=== PATIENT | male | born 1935 | race Caucasian/White ===

== ENCOUNTER 2017-10-15 07:41 | Emergency (ER) | payer OTHER, MEDICARE ==
[~2017-10-15] VITALS: Ht 182.9 cm; Wt 80.0 kg
[~2017-10-15 07:41] MED LIST: GLUCTAB PO; LEVO.025 PO; METR0.7533 TOP; NORV2.5T11 PO; PRED20 PO; TAB-TAB PO
[2017-10-15 07:44] VITALS: BP 157/75; PULSE 62; RESP 16; TEMP 97.7; O2SAT 96
[2017-10-15] MEDS ORDERED: MORPHINE SULFATE 4 MG/ML INJ IV ONE (08:00)
[2017-10-15] MEDS ORDERED: SODIUM CHLORIDE 0.9% FLUSH 10 ML FLUSH IVF PRN (08:00)
[2017-10-15] MEDS ORDERED: ONDANSETRON HCL 4 MG/2 ML VIAL IVP ONE (08:00)
[2017-10-15] MEDS ORDERED: LEVO125T4 PO (08:03)
[2017-10-15] MEDS ORDERED: FISHCAP4 PO (08:03)
[2017-10-15] MEDS ORDERED: AMLO5TAB2 PO (08:03)
[2017-10-15] MEDS ORDERED: METF500T PO (08:03)
--- NOTE | 2017-10-15 08:07 | PD ---
HPI . Back pain Chief Complaint: Flank/Kidney Pain Time Seen by Provider: 07:59 Travel History International Travel<30 days: No Contact w/Intl Traveler<30days: No Traveled to known affect area: No History of Present Illness HPI Patient presents with a chief complaint of low back pain. Onset was 2 days ago. He states that the pain was initially relieved by Tylenol. However, his pain became much worse during the night last night and is now unrelieved by Tylenol. He describes the pain as "mechanical" and states that it is exacerbated by certain movements and by walking. He rates the pain 10/10. The pain is bilateral but is worse on the right side. He has had previous kidney stones but states that this pain is dissimilar to previous kidney colic pain. PFSH Past Medical History Cardiovascular Problems: Yes (htn on meds) Diabetes: Yes (type 2) Patient Takes Glucophage: Yes Diminished Hearing: No Hypertension: Yes Kidney Stones: Yes (LAST KIDNEY STONE 11/07/2002) Immunizations Current: Yes Thyroid Disease: Yes Tetanus Vaccination: Unknown Social History Alcohol Use: No Tobacco Use: No Substance Use: No Allergies-Medications (Allergen,Severity, Reaction): Coded Allergies: No Known Allergies (Unverified Adverse Reaction, Unknown, 10/15/17) Reported Meds & Prescriptions Reported Meds & Active Scripts Active Reported Fish Oil + D3 (Fish Oil-Cholecalciferol) 1,200-1,000 Mg-Unit Cap 1 Cap PO DAILY Metformin (Metformin HCl) 500 Mg Tab 500 Mg PO TIDPC Amlodipine (Amlodipine Besylate) 5 Mg Tab 5 Mg PO DAILY Levothyroxine (Levothyroxine Sodium) 125 Mcg Tab 125 Mcg PO DAILY Review of Systems Except as stated in HPI: all other systems reviewed are Neg General / Constitutional: No: Fever, Chills Gastrointestinal: Positive: Nausea, No: Vomiting Genitourinary: Positive: Frequency (he states that he had to get up to urinate 3 or 4 times during the night which is unusual for him), Flank Pain, No: Dysuria , Hematuria Physical Exam Narrative GENERAL: Patient was standing up in the room in no acute distress. SKIN: warm/dry. Normal color and turgor. HEAD: Normocephalic. Atraumatic. EYES: Pupils equal and round. No scleral icterus. No injection or drainage. ENT: No nasal bleeding or discharge. Mucous membranes pink and moist. NECK: Trachea midline. Full range of motion without pain.. CARDIOVASCULAR: Regular rate and rhythm. RESPIRATORY: No accessory muscle use. Clear to auscultation. Breath sounds equal bilaterally. GASTROINTESTINAL: Abdomen soft. Nontender. Bowel sounds present. Nondistended. Positive right CVA tenderness. MUSCULOSKELETAL: No obvious deformities. NEUROLOGICAL: Awake and alert. No obvious cranial nerve deficits. Motor grossly within normal limits. Normal speech. PSYCHIATRIC: Appropriate mood and affect; insight and judgment normal. Data Data Last Documented VS Vital Signs Date Time Temp Pulse Resp B/P (MAP) Pulse Ox O2 Delivery O2 Flow Rate FiO2 10/15/17 07:44 97.7 62 16 157/75 (102) 96 Orders Orders Urinalysis - C+S If Indicated (10/15/17 07:42) Basic Metabolic Panel (Bmp) (10/15/17 07:59) Complete Blood Count With Diff (10/15/17 07:59) Ct Abd/Pel W/O Iv Contrast (10/15/17 07:59) Iv Access Insert/Monitor (10/15/17 07:59) Ondansetron Inj (Zofran Inj) (10/15/17 08:00) Sodium Chloride 0.9% Flush (Ns Flush) (10/15/17 08:00) Morphine Inj (Morphine Inj) (10/15/17 08:00) Sodium Chlor 0.9% 1000 Ml Inj (Ns 1000 M (10/15/17 08:15) Labs Laboratory Tests Test 10/15/17 08:06 10/15/17 09:13 White Blood Count 6.7 TH/MM3 Red Blood Count 5.62 MIL/MM3 Hemoglobin 15.4 GM/DL Hematocrit 48.6 % Mean Corpuscular Volume 86.5 FL Mean Corpuscular Hemoglobin 27.5 PG Mean Corpuscular Hemoglobin Concent 31.7 % Red Cell Distribution Width 13.6 % Platelet Count 182 TH/MM3 Mean Platelet Volume 8.2 FL Neutrophils (%) (Auto) 75.0 % Lymphocytes (%) (Auto) 14.7 % Monocytes (%) (Auto) 7.1 % Eosinophils (%) (Auto) 2.3 % Basophils (%) (Auto) 0.9 % Neutrophils # (Auto) 4.9 TH/MM3 Lymphocytes # (Auto) 1.0 TH/MM3 Monocytes # (Auto) 0.5 TH/MM3 Eosinophils # (Auto) 0.2 TH/MM3 Basophils # (Auto) 0.1 TH/MM3 CBC Comment DIFF FINAL Differential Comment Blood Urea Nitrogen 14 MG/DL Creatinine 0.99 MG/DL Random Glucose 139 MG/DL Calcium Level 8.9 MG/DL Sodium Level 138 MEQ/L Potassium Level 4.1 MEQ/L Chloride Level 103 MEQ/L Carbon Dioxide Level 27.8 MEQ/L Anion Gap 7 MEQ/L Estimat Glomerular Filtration Rate 72 ML/MIN Urine Collection Type CLEAN CATCH Urine Color STRAW Urine Turbidity CLEAR Urine pH 7.0 Urine Specific [place] 1.006 Urine Protein NEG mg/dL Urine Glucose (UA) NEG mg/dL Urine Ketones NEG mg/dL Urine Occult Blood TRACE Urine Nitrite NEG Urine Bilirubin NEG Urine Leukocyte Esterase NEG Urine RBC 0-3 /hpf Urine Squamous Epithelial Cells 0-5 /hpf Urine Amorphous Sediment FEW Microscopic Urinalysis Comment CULT NOT INDICATED Urine Collection Time 0913 MDM Medical Decision Making Medical Screen Exam Complete: Yes Emergency Medical Condition: Yes Medical Record Reviewed: Yes (medical history of HTN, DM, hypothyroidism and previous kidney colic.) Differential Diagnosis Differential diagnosis of flank pain includes but is not limited to kidney stone , pyelonephritis, musculoskeletal pain, PE Narrative Course This patient presents with flank pain. It may very well be musculoskeletal. He will be evaluated to rule out kidney stone, pyelonephritis or AAA. CBC & BMP Diagram 10/15/17 08:06 Calcium Level 8.9 UA>>neg Last Impressions Abdomen/Pelvis CT 10/15/17 0759 Signed Impressions: Service Date/Time: Tuesday, October 15, 2017 08:17 - CONCLUSION: 1. No acute findings. Stable bilateral adrenal masses compared with 2011. Colonic diverticulosis without diverticulitis. Mild constipation. 2. No obstructive uropathy or hydronephrosis. No renal or ureteral calculi. José Antonio Moore MD This patient's pain is most likely musculoskeletal. He is elderly. I will give him prescriptions for Tylenol 3 and Valium. Diagnosis Primary Impression: Flank pain Patient Instructions: Flank Pain (ED), General Instructions Med/Other Pt SpecificInfo: Prescription(s) given Scripts Diazepam (Valium) 5 Mg Tab 5 MG PO TID Y for muscle spasm, #12 TAB 0 Refills Prov: Connie Gamino MD 10/15/17 Acetaminophen-Codeine (Tylenol-Codeine #3) 300-30 mg Tab 1 TAB PO Q4H Y for PAIN, #12 TAB 0 Refills Prov: Connie Gamino MD 10/15/17 Disposition: 01 DISCHARGE HOME Condition: Stable Connie Gamino MD Oct 15, 2017 08:07
[2017-10-15] MEDS ORDERED: SODIUM CHLOR 0.9% 1000 ML INJ 1,000 ML IV SCH (08:15)
[2017-10-15 08:20] LABS: AUTOMATED NEUTROPHIL # 4.9 TH/MM3 (1.8-7.7); BASOPHIL # 0.1 TH/MM3 (0-0.2); BASOPHIL % 0.9 % (0.0-2.0); EOSINOPHIL # 0.2 TH/MM3 (0-0.4); EOSINOPHIL % 2.3 % (0.0-4.0); HEMATOCRIT 48.6 % (39.0-51.0); LYMPH % 14.7 % (9.0-44.0); MEAN CELL VOLUME 86.5 FL (80.0-100.0); MEAN CORPUSCULAR HEMOGLOBIN 27.5 PG (27.0-34.0); MEAN CORPUSCULAR HGB CONC 31.7 % (32.0-36.0); MONO % 7.1 % (0.0-8.0); PLATELET COUNT 182 TH/MM3 (150-450); RED BLOOD COUNT 5.62 MIL/MM3 (4.50-5.90); RED CELL DISTRIBUTION WIDTH 13.6 % (11.6-17.2); WHITE BLOOD COUNT 6.7 TH/MM3 (4.0-11.0)
[2017-10-15 08:22] LABS: HEMO FLAGS DIFF FINAL
[2017-10-15 08:27] LABS: POTASSIUM 4.1 MEQ/L (3.5-5.1)
[2017-10-15 08:30] LABS: BICARBONATE 27.8 MEQ/L (21.0-32.0)
--- NOTE | 2017-10-15 09:00 | RADRPT ---
EXAM DATE/TIME: 10/15/2017 08:17 [facility] COMPARISON: No previous studies available for comparison. INDICATIONS : Right flank pain for 2 days. ORAL CONTRAST: No oral contrast ingested. RADIATION DOSE: 17.65 CTDIvol (mGy) MEDICAL HISTORY : Renal calculi. Hypertension. Diabetes mellitus type 2. SURGICAL HISTORY : None. ENCOUNTER: Initial ACUITY: 2 days PAIN SCALE: 6/10 LOCATION: Right flank TECHNIQUE: Volumetric scanning of the abdomen and pelvis was performed. Using automated exposure control and ad justment of the mA and/or kV according to patient size, radiation dose was kept as low as reasonably achievable to obtain optimal diagnostic quality images. DICOM format image data is available electro nically for review and comparison. FINDINGS: No focal abnormality in the liver and spleen. Bilateral adrenal masses again noted measuring up to 4. 2 cm on the right and 2.5 cm on the left, similar to 2012 and characteristic of myelolipomas. Previous obstructive uropathy on the right has resolved and currently no renal calculi or ureteral ca lculi identified. No hydronephrosis. Large left renal cyst measuring up to 11 cm in diameter slightly increased from 2012. No pelvic masses or adenopathy. Mild constipation. Colonic diverticulosis. CONCLUSION: 1. No acute findings. Stable bilateral adrenal masses compared with 2012. Colonic diverticulosis with out diverticulitis. Mild constipation. 2. No obstructive uropathy or hydronephrosis. No renal or ureteral calculi. José Antonio Moore MD on October 15, 2017 at 8:49 Board Certified Radiologist. This report was verified electronically.
[2017-10-15 09:20] LABS: BLOOD, URINE TRACE (NEG); GLUCOSE,URINE NEG (NEG); KETONE, URINE NEG (NEG); NITRITE,URINE NEG (NEG)
[2017-10-15 09:21] LABS: METHOD OF COLLECTION CLEAN CATCH; URINE COLOR STRAW (YELLW/STRAW)
[2017-10-15 09:24] LABS: COMMENT (UR) CULT NOT INDICATED; CULTURE IF INDICATED CULT NOT INDICATED; RBC, URINE 0-3 /hpf (0-3); SQUAMOUS EPITHELIAL CELL URINE 0-5 /hpf (0-5)
[2017-10-15] MEDS ORDERED: DIAZ5 PO (09:45)
[2017-10-15] MEDS ORDERED: TYLETAB34 PO (09:45)
== END 2017-10-15 10:02 | disposition home or self-care (01) ==
LOC: PHED 07:41
DX: R10.9 Unspecified abdominal pain (principal); K57.30 Diverticulosis of large intestine without perforation or abscess without bleeding; I10 Essential (primary) hypertension; E11.9 Type 2 diabetes mellitus without complications; Z79.84 Long term (current) use of oral hypoglycemic drugs
CPT/HCPCS: 74176; 80048; 81001; 85025; 96361; 96374; 96375; 99284; J2270; J2405; J7030